=== PATIENT | female | born 1945 | race Caucasian/White ===

== ENCOUNTER 2016-08-28 10:16 | Day surgery (SDC) | payer MEDICARE ==
[~2016-08-28 10:16] MED LIST: LIDOCAINE 1% 2 ML VIAL ID PRN; SODIUM CHLORIDE 0.9% 1,000 ML IV SCH
[2016-08-28] MEDS ORDERED: IV START KIT ONE (10:22)
[2016-08-28] MEDS ORDERED: SODIUM CHLORIDE 0.9% 1,000 ML ONE (10:22)
[2016-08-28] MEDS ORDERED: SODIUM CHLORIDE 0.9% 1,000 ML IV SCH (10:39)
[2016-08-28] MEDS ORDERED: LIDOCAINE 1% 2 ML VIAL ID PRN (10:39)
[2016-08-28] MEDS ORDERED: BUPIVACAINE (LIPOSOMAL) PF 1.3% 20 ML VIAL IF PRN (10:39)
[2016-08-28] MEDS ORDERED: LIDOCAINE 1% (PRES FREE) 30 ML VIAL ONE (14:32)
[2016-08-28] MEDS ORDERED: BUPIVACAINE 0.5% W/EPI SDV 30 ML VIAL ONE (14:32)
[2016-08-28] MEDS ORDERED: PROPOFOL 20 ML IV ONE ×3 (14:43→15:20)
[2016-08-28] MEDS ORDERED: LIDOCAINE 2% (PRES FREE) 5 ML VIAL ONE (14:43)
[2016-08-28] MEDS ORDERED: OXYCODONE/ACETAMINOPHEN 5/325 MG TABLET PO PRN (16:24)
[2016-08-28] MEDS ORDERED: HYDROMORPHONE HCL 1 MG/ML SYRINGE IV PRN (16:24)
[2016-08-28] MEDS ORDERED: LACTATED RINGERS 1,000 ML IV SCH (16:24)
[2016-08-28] MEDS ORDERED: ONDANSETRON 4 MG/2ML 2 ML VIAL IV PRN (16:24)
[2016-08-28] MEDS ORDERED: HYDROMORPHONE HCL 1 MG/ML SYRINGE ONE (16:27)
[2016-08-28] MEDS ORDERED: OXYCODONE/ACETAMINOPHEN 5/325 MG TABLET ONE (16:48)
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
--- NOTE | 2016-08-31 11:32 | SURGPATH ---
[facility] [address] [place] [id number] Patient Name: EVELYN DSOUZA MR#: [id number] : 1945 Gender: F Specimen #: [id number] Collected: 08/28/2016 Received: 08/30/2016 Reported: 08/31/2016 Submitting Phys: LISANDRA SOUSA Copy To Phys: OSVALDO AGUILAR [facility] Clinical History / Pre-Operative Diagnosis: GRADE 3 INTERNAL HEMORRHOID Specimen Source / Surgical Procedure Performed: ANAL POLYP Interpretation: ANAL POLYP, POLYPECTOMY: - TUBULOVILLOUS ADENOMA, COMPLETELY EXCISED Electronically Signed Out Gael Morris M.D. Gross Description: The specimen is received in a formalin filled container labeled with the patient's name and "anal polyp". A nodular, polypoid red-langley biopsy is 2.0 x 2.0 x 1.8 cm. The specimen is multiply sectioned and entirely submitted in cassettes A-C. Shiraz Ernst Microscopic Description: A pedunculated polyp shows tubulovillous architecture and adenomatous epithelial change representing a tubulovillous adenoma. The surgical margin appears free of adenoma. 1: 06999 D12.8
== END 2016-08-28 17:50 | disposition home or self-care (01) ==
LOC: SDC 10:16
PROVIDERS: ATTEND Surgery
PROC: 0DJD8ZZ Inspection of Lower Intestinal Tract, Via Natural or Artificial Opening Endoscopic (ICD-10-PCS; principal; 2016-08-28)
PROC: 0DBQXZZ Excision of Anus, External Approach (ICD-10-PCS; 2016-08-28)
PROC: 06BY0ZC Excision of Hemorrhoidal Plexus, Open Approach (ICD-10-PCS; 2016-08-28)
DX: Z12.11 Encounter for screening for malignant neoplasm of colon (principal); K64.2 Third degree hemorrhoids; D12.5 Benign neoplasm of sigmoid colon; K62.1 Rectal polyp; K62.0 Anal polyp; J44.9 Chronic obstructive pulmonary disease, unspecified; I10 Essential (primary) hypertension; Z88.5 Allergy status to narcotic agent; Z88.8 Allergy status to other drugs, medicaments and biological substances; Z87.891 Personal history of nicotine dependence
CPT/HCPCS: 46260; 46922; G0121